=== PATIENT | female | born 1980 | race Caucasian/White ===

== ENCOUNTER 2017-08-06 11:02 | Emergency (ER) | payer MEDICAID ==
[~2017-08-06] VITALS: Ht 157.5 cm; Wt 65.0 kg
[2017-08-06 11:16] VITALS: Ht 157.5 cm; Wt 65.0 kg
[2017-08-06] MEDS ORDERED: CETI10CA PO (11:54)
[2017-08-06] MEDS ORDERED: FLUT16SP17 NASAL (11:54)
--- NOTE | 2017-08-06 11:58 | ERD ---
ER Documentation Chief Complaint Date/Time DATE: 08/06/17 TIME: 11:56 Chief Complaint SORETHROAT X1MTH HPI 37-year-old female presents with voice hoarseness, and right throat for approximately a month now. She states that it is worse when she leaves the house. She has not had any fevers, chills, dizziness, palpitations. She denies sore throat, cough, fever, runny nose. ROS All systems reviewed and are negative except as per history of present illness. Medications Home Meds Active Scripts Fluticasone Propionate* (Fluticasone Propionate* Nasal) 50 Mcg/[place] - 16 Gm [place].susp, 1 SPRAY NASAL BID, #1 BOTTLE TO EACH NOSTRIL Prov:MARIALUISA MONTEMAYOR PA-C 08/06/17 Cetirizine Hcl* (Zyrtec*) 10 Mg Capsule, 10 MG PO DAILY, #30 TAB.CHEW Prov:MARIALUISA MONTEMAYOR PA-C 08/06/17 Allergies Allergies: Coded Allergies: No Known Allergy (Unverified , 08/06/17) Physical Exam Vitals Vital Signs Date Time Temp Pulse Resp B/P Pulse Ox O2 Delivery O2 Flow Rate FiO2 08/06/17 11:16 98.0 79 18 146/73 98 Physical Exam General: Well-developed, well-nourished. The patient appears in no acute distress. HEENT: Head is normocephalic, atraumatic. No scleral icterus. Pupils are equal , round, and reactive. Oral mucous membranes are moist. No pharyngeal erythema. Neck: Supple. Nontender. No palpable masses. Lungs: Clear to auscultation. Normal air movement. Heart: Regular rate and rhythm. S1 and S2 are normal. No murmurs, gallops, or rubs. Abdomen: Soft, nontender, nondistended. Bowel sounds are normoactive. Extremities: No clubbing or cyanosis. Normal pulses. Moving extremities x 4. No weakness. Neurologic: Alert and oriented 3. No focal deficits. Skin: Normal turgor. No rash or lesions. Procedures/MDM 29-year-old female comes with voice hoarseness for month now, she does have hoarseness on examination. Her ENT examination shows a clear throat, no neck masses, no lymphadenopathy, no thyroid megaly or goiter. Patient's vitals are reviewed, I doubt thyroid storm. Patient will be started on Zyrtec and fluticasone nasal spray. I have asked her to follow-up with an ear nose throat specialist, and was given information to Dr. Ayers for follow-up if her symptoms do not improve. She was also given him information for laryngoscope examination if needed. Departure Diagnosis: Primary Impression: Voice hoarseness Condition: Good Patient Instructions: Direct Laryngoscopy with Bronchoscopy, Laryngitis Referrals: LEANNA AYERS MD [facility] YOU HAVE RECEIVED A MEDICAL SCREENING EXAM AND THE RESULTS INDICATE THAT YOU DO NOT HAVE A CONDITION THAT REQUIRES URGENT TREATMENT IN THE EMERGENCY DEPARTMENT. FURTHER EVALUATION AND TREATMENT OF YOUR CONDITION CAN WAIT UNTIL YOU ARE SEEN IN YOUR DOCTORS OFFICE WITHIN THE NEXT 1-2 DAYS. IT IS YOUR RESPONSIBILITY TO MAKE AN APPOINTMENT FOR FOLOW-UP CARE. IF YOU HAVE A PRIMARY DOCTOR --you should call your primary doctor and schedule an appointment IF YOU DO NOT HAVE A PRIMARY DOCTOR YOU CAN CALL OUR PHYSICIAN REFERRAL HOTLINE AT IF YOU CAN NOT AFFORD TO SEE A PHYSICIAN YOU CAN CHOSE FROM THE FOLLOWING [facility] [address] [facility] [facility] [address] [facility] [address] [facility] [address] [facility] [address] [facility]. [facility]. [address] [facility]. [facility] YOU HAVE RECEIVED A MEDICAL SCREENING EXAM AND THE RESULTS INDICATE THAT YOU DO NOT HAVE A CONDITION THAT REQUIRES URGENT TREATMENT IN THE EMERGENCY DEPARTMENT. FURTHER EVALUATION AND TREATMENT OF YOUR CONDITION CAN WAIT UNTIL YOU ARE SEEN IN YOUR DOCTORS OFFICE WITHIN THE NEXT 1-2 DAYS. IT IS YOUR RESPONSIBILITY TO MAKE AN APPOINTMENT FOR FOLOW-UP CARE. IF YOU HAVE A PRIMARY DOCTOR --you should call your primary doctor and schedule and appointment IF YOU DO NOT HAVE A PRIMARY DOCTOR YOU CAN CALL OUR PHYSICIAN REFERRAL HOTLINE AT . IF YOU CAN NOT AFFORD TO SEE A PHYSICIAN YOU CAN CHOSE FROM THE FOLLOWING [facility] INSTITUTIONS: [facility] [address] [place] [address] [facility] [address] [place] [address] [facility] + [facility] [address] [place] [address] [facility] URGENT CARE/SPECIALTIES Additional Instructions: NO ESTA MEJORANDO, NECESITA JEOVANNY Specialista, ENT:Usted tiene jeovanny condicin m dica que requiere que kimberly a un especialista dentro de los prximos 1-2 SEMANAS.POR FAVOR,CON HICKS SEGUIMIENTO DE PRIMARIA PHSICIAN refferal. SI USTED NO TIENE UN MDICO GENERAL Y / O USTED NO PUEDE PAGAR hector a un mdico,los siguientes cruz RECURSOS sido suministrado a usted. ES HICKS RESPONSABILIDAD PARA SER VISTOS POR EL ESPECIALISTA: MARIALUISA MONTEMAYOR PA-C Aug 06, 2017 11:58
== END 2017-08-06 12:30 | disposition home or self-care (01) ==
LOC: FTE 11:02
DX: R49.0 Dysphonia (principal)
CPT/HCPCS: 99283

== ENCOUNTER 2018-07-22 11:46 | Emergency (ER) | END 2018-07-22 16:28 | disposition home or self-care (01) ==

== ENCOUNTER 2018-09-24 12:36 | Emergency (ER) | END 2018-09-24 14:36 | disposition home or self-care (01) ==